=== PATIENT | female | born 1980 | race Caucasian/White ===

== ENCOUNTER 2018-07-07 12:30 | Inpatient (IN) ==
[2018-07-07] MEDS ORDERED: Bisacodyl 10 MG Supp RECTAL PRN (15:05)
[2018-07-07] MEDS ORDERED: Acetaminophen 325 MG Tablet PO PRN (15:05)
[2018-07-07] MEDS ORDERED: Sodium Chlor 0.9% Inj 250 ML IV.SIG SCH (16:00)
--- NOTE | 2018-07-07 16:49 | P.HP ---
History of Present Illness Primary Care Physician: No Primary Care Physician Chief Complaint: Abdominal pain History of Present Illness: This is a 37-year-old female patient who presented to the ED with complaints of sudden onset of left flank pain x 3 days duration. Patient states that about 3 days ago she was sitting watching TV when she developed left-sided abdominal pain/flank pain, she states that the pain is aching and sharp in nature, is constant and worsens with deep breathing, sneezing, laughing or moving. She does state that she attempted to take ibuprofen a couple times without any relief of the pain. She does admit to recent shortness of breath as well as fatigue pretty consistently over the course of the last several weeks. She does also admit to nausea and vomiting almost daily although this is a chronic issue for her. She states that she does not follow with the PCP, she states she does not necessarily like going to the doctor. She does not have a title i teacher she follows with. She denies any recent fevers, chills, cough, diarrhea, dysuria, black or bloody stools. Patient states her last menstrual period was 2 weeks ago, states it was rather heavier than normal. Prior to this her menstrual cycles have been pretty light. She denies any medical history, does not take any medicines at home. Does not have a surgical history. Her mom and dad are relatively healthy although they both have hepatitis C. She denies any tobacco abuse or alcohol use. She does admit to occasional marijuana use. Abdominal/pelvis CT showing some splenomegaly. An additional CT with IV contrast has been ordered. Patient presented with a hemoglobin of 6.0. At this time there is no apparent bleeding. Workup in progress. - Diagnosis (1) Anemia (2) Splenomegaly Inpatient Certification: I certify that the inpatient services were ordered in accordance with Medicare regulations governing the order. This includes certification that hospital inpatient services are reasonable and necessary and in the case of services not specified as inpatient-only under 42 CFR 419.22(n), that they are appropriately provided as inpatient services in accordance to with the 2-midnight benchmark under 43 CFR 412.3(e) Estimated Total Length of Stay (Days): 3 Plans for Post Hospital Care: Home Review of Systems All other systems reviewed negative except as stated in HPI [facility] - History History Provided By: Patient - Medical History Medical History: Medical History (Last Reviewed 07/07/18 @ 12:21 by MILDRED Serra) Depression - Surgical History Surgical History: Surgical History (Last Reviewed 07/07/18 @ 12:21 by MILDRED Serra) No history of previous surgery - Tobacco History Smoking Status: Never smoker - Alcohol History How Often Do You Have a Drink Containing Alcohol: Never - Substance Use History Substance History: Active Abuse Medications and Allergies Active Medications: Active Medications Acetaminophen (Tylenol) 650 mg PO Q4H PRN PRN Reason: Temp > 100.4 Al Hydroxide/Mg Hydroxide (Milk Of Magnesia Liq) 30 ml PO Q12H PRN PRN Reason: Mild Constipation Bisacodyl (Dulcolax Supp) 10 mg RECTAL DAILY PRN PRN Reason: SEVERE CONSITIPATION Sodium Chloride (Ns Inj) 250 mls @ 15 mls/hr IV.SIG ONCE ANCA Stop: 07/08/18 08:39 Lactulose (Lactulose Liq) 30 ml PO DAILY PRN PRN Reason: SEVERE CONSITIPATION Ondansetron HCl (Zofran Inj) 4 mg IV.PUSH Q6H PRN PRN Reason: NAUSEA OR VOMITING Sennosides (Senokot) 17.2 mg PO Q12H PRN PRN Reason: Moderate Constipation Allergies Allergy/AdvReac Type Severity Reaction Status Date / Time No Known Allergies Allergy Unverified 07/07/18 11:58 Home Medications Medication Instructions Recorded Confirmed Type No Known Home Medications 07/07/18 07/08/18 History Exam Narrative: GENERAL: Well-developed, well-nourished patient in [facility]. SKIN: Warm and dry. No rash. Pale. HEAD: Normocephalic. Atraumatic. EYES: Pupils equal and round. No scleral icterus. No injection or drainage. ENT: No nasal bleeding or discharge. Mucous membranes pink and moist. NECK: Supple. Trachea midline. CARDIOVASCULAR: Regular rate and rhythm. S1, S2 noted. No murmur appreciated. RESPIRATORY: No accessory muscle use. Clear to auscultation. Breath sounds equal bilaterally. GASTROINTESTINAL: Abdomen soft, nondistended. Normoactive bowel sounds x4. Mild tenderness to left side. MUSCULOSKELETAL: No obvious deformities. Extremities without clubbing, cyanosis , or edema. NEUROLOGICAL: Awake and alert. No obvious cranial nerve deficits. Motor grossly within normal limits. 5/5 muscle strength in bilateral upper and lower extremities. Normal speech. PSYCHIATRIC: Appropriate mood and affect; insight and judgment normal. Results - Labs CBC & Chem 7: 07/08/18 06:15 07/08/18 06:15 Caprini VTE Risk Assessment Caprini VTE Risk Assessment: No/Low Risk (score <= 1) Caprini Risk Assessment Model: Point Value = 1 Point Value = 2 Point Value = 3 Point Value = 5 Age 41-60 Minor surgery BMI > 25 kg/m2 Swollen legs Varicose veins or History of unexplained or recurrent spontaneous Oral contraceptives or hormone replacement Sepsis (< 1 month) Serious lung disease, including pneumonia (< 1 month) Abnormal pulmonary function Acute myocardial infarction Congestive heart failure (< 1 month) History of inflammatory bowel disease Medical patient at bed rest Age 61-74 Arthroscopic surgery Major open surgery (> 45 min) Laparoscopic surgery (> 45 min) Malignancy Confined to bed (> 72 hours) Immobilizing plaster cast Central venous access Age >= 75 History of VTE Family history of VTE Factor V Leiden Prothrombin [id number] Lupus anticoagulant Anticardiolipin antibodies Elevated serum homocysteine Heparin-induced thrombocytopenia Other congenital or acquired thrombophilia Stroke (< 1 month) Elective arthroplasty Hip, pelvis, or leg fracture Acute spinal cord injury (< 1 month) Prophylaxis Regimen: Total Risk Factor Score Risk Level Prophylaxis Regimen 0-1 Low Early ambulation 2 Moderate Order ONE of the following: *Sequential Compression Device (SCD) *Heparin 5000 units SQ BID 3-4 Higher Order ONE of the following medications: *Heparin 5000 units SQ TID *Enoxaparin/Lovenox 40 mg SQ daily (WT < 150 kg, CrCl > 30 mL/min) *Enoxaparin/Lovenox 30 mg SQ daily (WT < 150 kg, CrCl > 10-29 mL/min) *Enoxaparin/Lovenox 30 mg SQ BID (WT < 150 kg, CrCl > 30 mL/min) AND/OR *Sequential Compression Device (SCD) 5 or more Highest Order ONE of the following medications: *Heparin 5000 units SQ TID (Preferred with Epidurals) *Enoxaparin/Lovenox 40 mg SQ daily (WT < 150 kg, CrCl > 30 mL/min) *Enoxaparin/Lovenox 30 mg SQ daily (WT < 150 kg, CrCl > 10-29 mL/min) *Enoxaparin/Lovenox 30 mg SQ BID (WT < 150 kg, CrCl > 30 mL/min) AND *Sequential Compression Device (SCD) Assessment and Plan - Assessment (1) Anemia Code(s): D64.9 - Anemia, unspecified Status: Acute (2) Splenomegaly Code(s): R16.1 - Splenomegaly, not elsewhere classified Status: Acute - Plan This is a 37-year-old female patient with: Microcytic hypochromic anemia from unknown etiology/source -Patient presented with left upper quadrant -Hemoglobin 6.0/Hematocrit 22.9 on presentation. Guaiac negative. -Likely a slow chronic bleed. Will order for 2 units PRBC transfusion. Check H& H q6h. Monitor for any active bleeding. No active bleeding at this time. LMP was 2 weeks ago. -Abdominal/pelvis CT reviewed showing splenomegaly with either dilated varices or adenopathy in the retroperitoneum and left renal hilum. Order for ab/pelvis CT with contrast ordered. Follow. -Add LDH, iron studies and haptoglobin as well as b12 and folate to lab work. LFTs are normal. Follow ordered lab work. -Supportive care. Splenomegaly unknown etiology -Abdominal/pelvis CT findings as above. -Await repeat abdominal/pelvis CT with IV contrast. -Monitor labs. -Continue work up. DVT Prophylaxis: SCDs.
[2018-07-07] MEDS ORDERED: Morphine Inj 4 MG/ML Vial IV.PUSH PRN (18:30)
[2018-07-07 20:45] LABS: Hematocrit 20.5 % (35.0-46.0); Hemoglobin 6.2 gm/dL (11.6-15.3)
[2018-07-07] MEDS: Dextrose 5%/NaCl 0.45% Inj 1,000 ML IV.CONT SCH (23:39)
[2018-07-08 04:54] LABS: % Iron Saturation 9.5 % (20-50); Folate 8.1 ng/mL (3.1-17.5)
[2018-07-08] MEDS: Dextrose 5%/NaCl 0.45% Inj 1,000 ML IV.CONT SCH (07:03)
[2018-07-08 07:40] LABS: Chloride 104 meq/L (98-107); Potassium 3.6 meq/L (3.5-5.1); Sodium 139 meq/L (136-145)
[2018-07-08 07:42] LABS: Baso % (Auto) 0.2 % (0.0-2.0); Eos # (Auto) 0.1 th/mm3 (0.0-0.4); Eos % (Auto) 1.3 % (0.0-4.0); Hematocrit 25.3 % (35.0-46.0); Hemoglobin 7.6 gm/dL (11.6-15.3); Lymph # (Auto) 1.1 th/mm3 (1.0-4.8); Lymph % (Auto) 10.3 % (9.0-44.0); Mean Corpuscular Hemoglobin 20.4 pg (27.0-34.0); Mean Corpuscular Volume 67.9 fL (80.0-100.0); Mean Platelet Volume 7.8 fL (7.0-11.0); Mono # (Auto) 0.9 th/mm3 (0.0-0.9); Mono % (Auto) 8.4 % (0.0-8.0); Neut # (Auto) 8.3 th/mm3 (1.8-7.7); Neut % (Auto) 79.8 % (16.0-70.0); Platelet Count 366 th/mm3 (150-450); Red Blood Count 3.72 mil/mm3 (4.00-5.30); Red Cell Distribution Width 27.1 % (11.6-17.2); White Blood Count 10.4 th/mm3 (4.0-11.0)
[2018-07-08 07:45] LABS: Calcium 8.1 mg/dL (8.5-10.1)
[2018-07-08 07:46] LABS: Anion Gap 10 meq/L (5-15); Blood Urea Nitrogen 4 mg/dL (7-18); Carbon Dioxide 25.3 meq/L (21.0-32.0); Glucose,Random 94 mg/dL (74-106)
[2018-07-08 07:49] LABS: Glomerular Filtration Rate Greater Than 89 mL/min (>89)
[2018-07-08 08:13] LABS: Eosinophils 1 % (0-4); Lymphocytes 7 % (9-44); Monocytes 3 % (0-8); Tallied Nucleated RBC 1 (0-0)
[2018-07-08 08:17] LABS: Acanthocytes Occ
[2018-07-08 08:18] LABS: Ovalocytes 1+; Platelet Estimate Normal (Normal); Platelet Morphology Normal (Normal); Rouleaux Present; Tear Drop Cells 1+
--- NOTE | 2018-07-08 09:57 | P.PN ---
Subjective Interval history: Follow up anemia and splenomegaly. Patient seen and examined, lying in bed comfortably in [facility]. No reports of any acute events overnight. Recd 2 units PRBC overnight. H&H 7.6 today. Still dyspneic on exertion. Awaiting on oncology consultation today for splenomegaly. Denies any chest pain, abdominal pain, nausea, vomiting or diarrhea. Physical Exam Vital signs: Vital Signs 07/07/18 19:00 07/07/18 20:00 07/08/18 00:00 Temperature 98.4 F 98.5 F Pulse Rate 105 H 102 H 102 H Respiratory Rate 16 16 Blood Pressure 131/68 133/83 Pulse Oximetry 100 100 07/08/18 00:45 07/08/18 01:05 07/08/18 01:35 Temperature 98.5 F 99.0 F 98.5 F Pulse Rate 102 H 103 H 102 H Respiratory Rate 16 20 Blood Pressure 133/83 133/62 136/66 Pulse Oximetry 100 07/08/18 03:48 07/08/18 04:05 07/08/18 04:20 Temperature 98.7 F 98.3 F 98.5 F Pulse Rate 99 H 98 H 103 H Respiratory Rate 16 16 Blood Pressure 128/60 133/63 Pulse Oximetry 99 98 98 07/08/18 08:00 Temperature 98.2 F Pulse Rate 93 H Respiratory Rate 20 Blood Pressure 145/82 H Pulse Oximetry 100 Intake & Output 07/07/18 07/08/18 07/08/18 18:59 06:59 18:59 Intake Total 400 / 400 1000 / 1000 Balance 400 / 400 1000 / 1000 Weight 100.6 kg Intake: IV 1000 / 1000 D5W/1/2 NS Inj 1,000 ML @ 100 1000 / 1000 mls/hr IV.CONT .Q10H [facility] Rx#: [id number] Intake (Blood Product) Amt 400 / 400 Rbc As-3 Leukoreduced Unit 400 / 400 [id number] Rbc As-3 Leukoreduced Unit 0 / 0 [id number] Other: # Voids 4 # Bowel Movements 1 Narrative: GENERAL: Well-developed, well-nourished patient in [facility]. SKIN: Warm and dry. No rash. HEAD: Normocephalic. Atraumatic. EYES: Pupils equal and round. No scleral icterus. No injection or drainage. ENT: No nasal bleeding or discharge. Mucous membranes pink and moist. NECK: Supple. Trachea midline. CARDIOVASCULAR: Regular rate and rhythm. S1, S2 noted. No murmur appreciated. RESPIRATORY: No accessory muscle use. Clear to auscultation. Breath sounds equal bilaterally. GASTROINTESTINAL: Abdomen soft, non-tender, nondistended. Normoactive bowel sounds x4. MUSCULOSKELETAL: No obvious deformities. Extremities without clubbing, cyanosis , or edema. NEUROLOGICAL: Awake and alert. No obvious cranial nerve deficits. Motor grossly within normal limits. 5/5 muscle strength in bilateral upper and lower extremities. Normal speech. PSYCHIATRIC: Appropriate mood and affect; insight and judgment normal. Results - Labs CBC & Chem 7: 07/08/18 06:15 07/08/18 06:15 Laboratory Results - last 24 hr 07/07/18 07/07/18 07/07/18 20:26 20:26 21:30 CBC w Diff WBC RBC Hgb 6.2 L* Hct 20.5 L* MCV MCH MCHC RDW Plt Count MPV Neut % (Auto) Lymph % (Auto) [place] % (Auto) Eos % (Auto) Baso % (Auto) Neut # (Auto) Lymph # (Auto) [place] # (Auto) Eos # (Auto) Baso # (Auto) WBC Differential Seg Neuts % (Manual) Band Neuts % (Manual) Lymphocytes % (Manual) Monocytes % (Manual) Eosinophils % (Manual) Abs Neuts (Manual) Nucleated RBCs/100 WBC Differential Comment Platelet Estimate Platelet Morphology Basophilic Stippling Tear Drop Cells Ovalocytes Acanthocytes (Spur) Rouleaux Keratocytes Haptoglobin 316 H Sodium Potassium Chloride Carbon Dioxide Anion Gap BUN Creatinine Estimated GFR Random Glucose Calcium Iron 20 L TIBC 210 L % Saturation 9.5 L Lactate Dehydrogenase 299 H Vitamin B12 631 Folate 8.1 Blood Type O Positive Blood Type Recheck Required Antibody Screen Negative MTS Gel Crossmatch See Detail 07/08/18 07/08/18 06:15 06:15 CBC w Diff Slide review pending WBC 10.4 RBC 3.72 L Hgb 7.6 L Hct 25.3 L MCV 67.9 L MCH 20.4 L MCHC 30.0 L RDW 27.1 H D Plt Count 366 MPV 7.8 Neut % (Auto) 79.8 H Lymph % (Auto) 10.3 [place] % (Auto) 8.4 H Eos % (Auto) 1.3 Baso % (Auto) 0.2 Neut # (Auto) 8.3 H Lymph # (Auto) 1.1 [place] # (Auto) 0.9 Eos # (Auto) 0.1 Baso # (Auto) 0.0 WBC Differential Manual diff final Seg Neuts % (Manual) 79 H Band Neuts % (Manual) 10 H Lymphocytes % (Manual) 7 L Monocytes % (Manual) 3 Eosinophils % (Manual) 1 Abs Neuts (Manual) 9.3 H Nucleated RBCs/100 WBC 1 H Differential Comment . Platelet Estimate Normal Platelet Morphology Normal Basophilic Stippling Faint H Tear Drop Cells 1+ H Ovalocytes 1+ H Acanthocytes (Spur) Occ H Rouleaux Present H Keratocytes Occ H Haptoglobin Sodium 139 Potassium 3.6 Chloride 104 Carbon Dioxide 25.3 Anion Gap 10 BUN 4 L Creatinine 0.41 L Estimated GFR Greater than 89 Random Glucose 94 Calcium 8.1 L Iron TIBC % Saturation Lactate Dehydrogenase Vitamin B12 Folate Blood Type Blood Type Recheck Antibody Screen MTS Gel Crossmatch Assessment and Plan - Assessment (1) Anemia Code(s): D64.9 - Anemia, unspecified Status: Acute (2) Splenomegaly Code(s): R16.1 - Splenomegaly, not elsewhere classified Status: Acute - Plan This is a 37-year-old female patient with: Microcytic hypochromic anemia from unknown etiology/source -Patient presented Hemoglobin 6.0/Hematocrit 22.9. No active bleeding. Monitor. -Guaiac negative. LMP was 2 weeks ago. -Status post 2 units PRBC transfusion. H&H improved from 6.0 to 7.6 today. Continue to monitor H&H. -Abdominal/pelvis CT reviewed showing splenomegaly with either dilated varices or adenopathy in the retroperitoneum and left renal hilum. -Repeat abdominal/pelvis CT showing splenomegaly with splenic infarct and adenopathy. -LDH and haptoglobin elevated. Iron studies reviewed. B12 and folate normal. LFTs are normal. -Supportive care. Splenomegaly unknown etiology Left upper quadrant pain suspect secondary to above. Improved. -Abdominal/pelvis CT findings as above. -Consult placed to oncology, awaiting further input and recommendations. -ECHO ordered and pending. Follow. -Monitor ordered labs. -Continue work up, tumor markers ordered and pending. DVT Prophylaxis: SCDs. Patient would benefit from anticoagulation although with anemia will hold anticoagulation until stable and oncology recommendations.
[2018-07-08] MEDS ORDERED: Sodium Chlor 0.9% Inj 250 ML IV.SIG SCH (11:00)
[2018-07-08 12:55] LABS: Alpha Fetoprotein Tumor Marker 1.3 ng/mL (0.5-8.0); Carcinoembryonic Antigen 0.9 ng/mL (0.2-5.0)
--- NOTE | 2018-07-08 14:48 | ECHRPT ---
Indication: Chest pain CONCLUSIONS The left ventricular systolic function is low normal with an estimated ejection fraction in the rang e of 50- 55%. Wall thickness is measured at the upper limits of normal. Normal left ventricular size. Trace mitral valve regurgitation. Extra-cardiac soft tissue abnormality seen at the apex seems most likely to be splenomegaly which wa s reported in the EMR but a dedicated study would be recommended. BP: / HR: Rhythm: Sinus MEASUREMENTS (Male / Female) Normal Values Technical Quality:Technically difficult study 2D ECHO LV Diastolic Diameter PLAX 4.0 cm 4.2 - 5.9 / 3.9 - 5.3 cm LV Systolic Diameter PLAX 2.9 cm IVS Diastolic Thickness 0.8 cm 0.6 - 1.0 / 0.6 - 0.9 cm LVPW Diastolic Thickness 0.8 cm 0.6 - 1.0 / 0.6 - 0.9 cm LV Relative Wall Thickness 0.4 RV Internal Dim ED PLAX 2.3 cm LVOT Diameter 1.9 cm LA Systolic Diameter LX 3.9 cm 3.0 - 4.0 / 2.7 - 3.8 cm M-MODE Aortic Root Diameter MM 2.5 cm LA Systolic Diameter MM 4.2 cm LA Ao Ratio MM 1.7 AV Cusp Separation MM 2.0 cm DOPPLER AV Peak Velocity 159.0 cm/s AV Peak Gradient 10.1 mmHg LVOT Peak Velocity 102.0 cm/s LVOT Peak Gradient 4.2 mmHg AV Area Cont Eq pk 1.8 cm MV Area PHT 2.6 cm Mitral E Point Velocity 117.0 cm/s Mitral A Point Velocity 86.9 cm/s Mitral E to A Ratio 1.3 LV E' Lateral Velocity 15.3 cm/s Mitral E to LV E' Lateral Ratio 7.6 LV E' Septal Velocity 9.7 cm/s Mitral E to LV E' Septal Ratio 12.1 FINDINGS LEFT VENTRICLE The left ventricular systolic function is low normal with an estimated ejection fraction in the rang e of 50- 55%. Wall thickness is measured at the upper limits of normal. Normal left ventricular size. RIGHT VENTRICLE Normal right ventricular size and systolic function. LEFT ATRIUM The left atrial size is normal. RIGHT ATRIUM The right atrial size is normal. ATRIAL SEPTUM Normal atrial septal thickness without atrial level shunting by limited color doppler interrogation. AORTA The aortic root and proximal ascending aorta are normal in size on limited imaging. MITRAL VALVE Trace mitral valve regurgitation. AORTIC VALVE Trileaflet aortic valve. No aortic valve stenosis or regurgitation. TRICUSPID VALVE Structurally normal tricuspid valve. No tricuspid valve stenosis or regurgitation. PULMONARY VALVE No pulmonary valve regurgitation or stenosis. VESSELS The inferior vena cava is normal in size. PERICARDIUM No pericardial effusion. Ulysses Ivan MD (Electronically Signed) Final Date:08 July 2018 14:47
--- NOTE | 2018-07-08 17:24 | CT ---
EXAM DATE: 07/08/2018 5:02 PM EDT AGE/SEX: 37 years / Female INDICATIONS: Right upper chest and shoulder pain. Splenomegaly discovered on CT yesterday. Evaluate for neoplasm. CLINICAL DATA: This is the patient's initial encounter. Patient reports that signs and symptoms have been present for 1 day and indicates a pain score of 4/10. MEDICAL/SURGICAL HISTORY: Anemia. Splenomegaly. None. RADIATION DOSE: 26.92 CTDI (mGy) ; Patient body habitus COMPARISON: [facility], CT ABDOMEN & PELVIS W CONTRAST, 07/07/2018. . TECHNIQUE: Multiple contiguous axial images were obtained through the chest during bolus infusion of 70 ml Omnipaque 350 (iohexol) nonionic water-soluble contrast as a single exam dose. Images were obtained in suspended respiration using multiple row detector helical technique. Using automated exp osure control and adjustment of the mA and/or kV according to patient size, radiation dose was kept a s low as reasonably achievable to obtain optimal diagnostic quality images. DICOM format image data is available electronically for review and comparison. FINDINGS: Lungs: No consolidation or pneumothorax. No concerning pulmonary nodule is identified. There is mi ld compressive atelectasis in the left lower lobe adjacent to the small left pleural effusion and [place] vated left hemidiaphragm. Mediastinum: The heart and great vessels demonstrate no acute abnormality. There are multiple mildl y enlarged lymph nodes in the mediastinum including superior mediastinal lymphadenopathy between the great vessels measuring up to 1.4 x 1.1 cm, right paratracheal lymph node measuring 11 mm in short ax is diameter, an AP window lymph node measuring 10 mm in short axis diameter. Borderline enlarged subc arinal lymph node measures 14 mm in short axis diameter. No hilar lymphadenopathy is appreciated. Pleurae: There is trace left pleural fluid. No pleural thickening is seen. Axillae: No lymphadenopathy. Musculoskeletal: The bones and soft tissues demonstrate no acute abnormality. There are mild degene rative changes of the thoracic spine. Other: There is significant splenomegaly with wedge-shaped area of hypodensity similar to the abdome n and pelvis CT performed yesterday. There is a mildly enlarged right supraclavicular lymph node rajinder uring 1.5 x 1.0 cm. CONCLUSION: 1. There is mediastinal and right supraclavicular lymphadenopathy, as above. 2. Trace left pleural fluid with compressive atelectasis in the left lower lobe. 3. Partially visualized significant splenomegaly with suspected infarct. Electronically signed by: Luciano Arita MD 07/08/2018 5:22 PM EDT
--- NOTE | 2018-07-08 18:21 | MB ---
cc: Baldo Small MD DATE: 07/08/2018 CONSULTING PROVIDER: MILDRED Turner REASON FOR CONSULTATION: Hematology consulted render an opinion in a patient with splenomegaly and lymphadenopathy. HISTORY OF PRESENT ILLNESS: The patient is a 37-year-old female who presented to the hospital complaining of acute left flank pain. She stated she developed crampy muscle ache in the left flank area Tuesday night when she was watching TV. She took some ibuprofen with no relief. She has had nausea and intermittent vomiting for about a year. She also experienced increased fatigue and decreased appetite for at least a 6-month period. She states she lost about 40-50 pounds. She, however, did not seek any medical attention. Lately, she has increased dyspnea on exertion. She denies any fever, chills. She denies any night sweats. She denies any chest pressure or palpitation. She denies any cough. She denies any melena, hematochezia, dysuria or hematuria. Her last menstrual period was 2 weeks ago. She is not sexually active. She denies any focal numbness, weakness, urinary weakness. She has occasional headache. On presentation, she was noted to have hemoglobin of 6. She also has a CT scan which showed splenomegaly and retroperitoneal adenopathy. PAST MEDICAL HISTORY: Depression, obesity. PAST SURGICAL HISTORY: None. FAMILY HISTORY: Grandfather had pancreatic cancer. Her parents are alive and well. She has a brother was healthy. She has no children. SOCIAL HISTORY: No tobacco or alcohol use. She smoked marijuana occasionally. 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 ALLERGIES: NO KNOWN DRUG ALLERGIES. OUTPATIENT MEDICATIONS: None. REVIEW OF SYSTEMS: CONSTITUTIONAL: As above. EYES: Negative. ENT: Negative. CARDIOVASCULAR: No chest pressure or palpitation. RESPIRATORY: As above. GASTROINTESTINAL: As above. GENITOURINARY: As above. MUSCULOSKELETAL: Negative. HEMATOLOGY: As above. ENDOCRINE: Negative. DERMATOLOGY: Negative. PSYCHIATRIC: Negative. IMMUNOLOGIC: Negative. PHYSICAL EXAMINATION: VITAL SIGNS: Temperature 97.8, blood pressure 113/59, O2 saturation 99%. GENERAL: She is alert, oriented x3, no acute distress. HEENT: Atraumatic, normocephalic. Pupils are equal, round, reactive to light. Extraocular muscles intact. Normal sclerae icterus. Oropharynx dry mucosa. No lesion. No thrush. No mucositis. NECK: No thyromegaly. No palpable mass. LYMPHATIC: No palpable cervical, clavicular, axillary lymph node. CARDIOVASCULAR: Regular S1, S2. No murmur. LUNGS: Clear to auscultation bilateral wheezing and rhonchi. ABDOMEN: Soft. Slightly tender in the left upper quadrant. Difficult to palpate the spleen due to the obesity. EXTREMITIES: No cyanosis, clubbing or edema. No calf tenderness. BACK: No paravertebral tenderness. SKIN: No rash or petechiae. NEUROLOGIC: Nonfocal. LABORATORY DATA: WBC 10.4, hemoglobin 7.6, MCV 67.9, platelet count 366. Haptoglobin 316, creatinine 0.4, LDH of 299, iron saturation 9. ASSESSMENT AND PLAN: 1. Splenomegaly and lymphadenopathy. She presented with acute left flank pain. CT with contrast showed significant splenomegaly with spleen size of 19 cm. There was also splenic infarction noted. She has significant adenopathy in the upper abdomen and retroperitoneum. Clinically, she has not been feeling well for more than 6 months. She has lost about 40-50 pounds. She has increased fatigue and decreased appetite. She also has had intermittent nausea and vomiting. Her LDH is elevated. This is concerning for a lymphoproliferative disorder. I reviewed the CT scan with the patient. I would suggest getting a CT of the chest to see if there is any other adenopathy in the thorax. She is going to need a biopsy of the retroperitoneal lymph node. I will consult radiology for CT-guided biopsy. Also, check an HIV screen. The patient agrees. She, however, denies being sexually active or using any intravenous drug. She may also need a bone marrow biopsy, but we can wait until we have a diagnosis from the lymph node biopsy. 2. Severe anemia. She presented with hemoglobin of 6. She denies gastrointestinal bleed. She states that this moth her menstrual periods was heavier than her usual. She has significant microcytosis. Iron saturation of 9%. This is consistent with iron deficiency. She is receiving red blood cell transfusion. We will give her infusion of Venofer. 3. Depression. RECOMMENDATIONS: 1. Arrange for CT of the chest. 2. Consult radiology for a CT-guided biopsy of retroperitoneal lymph node. 3. Check HIV screen. 4. We will give her infusion of Venofer. Thank you, Ms. Cote, for asking me to see this patient. MD ZEINA Negrete/ , 04:18 PM , 04:33 PM DERREK
--- NOTE | 2018-07-09 08:32 | P.PN ---
Subjective Interval history: Follow up anemia and splenomegaly. Patient seen and examined, lying in bed comfortably in no apparent distress. Denies any new acute complaints overnight. Afebrile. Vitals signs stable. Pain is well controlled. Awaiting biopsy tomorrow. Physical Exam Vital signs: Vital Signs 07/08/18 12:00 07/08/18 12:34 07/08/18 16:00 Temperature 97.8 F 99.2 F Pulse Rate 95 H 100 H Respiratory Rate 20 20 Blood Pressure 133/88 113/59 L 143/81 H Pulse Oximetry 99 97 07/08/18 20:00 07/09/18 00:00 Temperature 98.3 F 97.5 F L Pulse Rate 96 H 97 H Respiratory Rate 20 20 Blood Pressure 134/72 133/72 Pulse Oximetry 97 98 Intake & Output 07/08/18 07/09/18 07/09/18 18:59 06:59 18:59 Intake Total 3620 / 3620 480 / 480 Balance 3620 / 3620 480 / 480 Weight 100.6 kg 100.8 kg Intake: IV 2500 / 2500 D5W/1/2 NS Inj 1,000 ML @ 100 2000 / 2000 mls/hr IV.CONT .Q10H ANCA Rx#: [id number] NS Inj 250 ML @ 15 mls/hr IV. 500 / 500 SIG ONCE ANCA Rx#:[id number] Oral 720 / 720 480 / 480 Intake (Blood Product) Amt 400 / 400 Rbc As-3 Leukoreduced Unit 400 / 400 [id number] Other: # Voids 3 Date of Last Bowel Movement 07/09/18 # Bowel Movements 2 Weight On Admission 100.6 kg Narrative: GENERAL: Well-developed, well-nourished patient in [facility]. SKIN: Warm and dry. No rash. HEAD: Normocephalic. Atraumatic. EYES: Pupils equal and round. No scleral icterus. No injection or drainage. ENT: No nasal bleeding or discharge. Mucous membranes pink and moist. NECK: Supple. Trachea midline. CARDIOVASCULAR: Regular rate and rhythm. S1, S2 noted. No murmur appreciated. RESPIRATORY: No accessory muscle use. Clear to auscultation. Breath sounds equal bilaterally. GASTROINTESTINAL: Abdomen soft, non-tender, nondistended. Normoactive bowel sounds x4. MUSCULOSKELETAL: No obvious deformities. Extremities without clubbing, cyanosis , or edema. NEUROLOGICAL: Awake and alert. No obvious cranial nerve deficits. Motor grossly within normal limits. 5/5 muscle strength in bilateral upper and lower extremities. Normal speech. PSYCHIATRIC: Appropriate mood and affect; insight and judgment normal. Results - Labs CBC & Chem 7: 07/08/18 06:15 07/08/18 06:15 Laboratory Results - last 24 hr 07/07/18 07/08/18 07/08/18 20:26 09:15 09:15 Total Protein (PEP) Tumor Marker AFP 1.3 Carcinoembryonic Ag 0.9 CA 19-9 Antigen Less than 1.2 Beta HCG, Qual HIV 1&2 Ab/P24 Ag 4thGn MTS Gel Crossmatch See Detail Bld Prod Order Comment 07/08/18 07/08/18 07/08/18 10:13 17:06 17:06 Total Protein (PEP) 7.4 Tumor Marker AFP Carcinoembryonic Ag CA 19-9 Antigen Beta HCG, Qual Less than 1.00 HIV 1&2 Ab/P24 Ag 4thGn Nonreactive MTS Gel Crossmatch See Detail Bld Prod Order Comment - Imaging Impressions Chest CT 07/08/18 00:00 CONCLUSION: 1. There is mediastinal and right supraclavicular lymphadenopathy, as above. 2. Trace left pleural fluid with compressive atelectasis in the left lower lobe. 3. Partially visualized significant splenomegaly with suspected infarct. Assessment and Plan - Assessment (1) Anemia Code(s): D64.9 - Anemia, unspecified Status: Acute (2) Splenomegaly Code(s): R16.1 - Splenomegaly, not elsewhere classified Status: Acute - Plan This is a 37-year-old female patient with: Severe anemia, microcytic hypochromic high RDW Iron deficiency anemia -Patient presented Hemoglobin 6.0/Hematocrit 22.9. -Guaiac negative. LMP was 2 weeks ago. -Status post 2 units PRBC transfusion. H&H improved from 6.0 to 7.6. Continue to monitor H&H. Awaiting CBC today. No active bleeding. Monitor. -Abdominal/pelvis CT reviewed showing splenomegaly with either dilated varices or adenopathy in the retroperitoneum and left renal hilum. -Repeat abdominal/pelvis CT showing splenomegaly with splenic infarct and adenopathy. -LDH and haptoglobin elevated. Iron studies reviewed, give Venofer. B12 and folate normal. LFTs are normal. -Supportive care. Splenomegaly and lymphadenopathy. Left upper quadrant pain suspect secondary to above. Improved. -Abdominal/pelvis CT findings as above. -Consult placed to oncology, appreciate input and recommendations. -CT chest ordered and showing mediastinal and right supraclavicular lymphadenopathy, trace pleural fluid with compressive compressive atelectasis in left lower lobe, as well as splenomegaly and infarct. -Incentive spirometry ordered. -Recommendations IR CT-guided biopsy of retroperitoneal lymph tomorrow. -HIV testing negative. -ECHO ordered and pending. -Monitor ordered labs. -Continue work up, tumor markers including CA-19-9 ordered and negative. Left lower lobe atelectasis -Seen on CT findings as above. -IS ordered. Encouraged ambulation and sitting in chair most of the day. -No signs of infection at this time. Afebrile. No leukocytosis. Will continue to monitor. DVT Prophylaxis: SCDs. Patient would benefit from anticoagulation although with anemia will hold anticoagulation until stable and oncology recommendations. Discharge Planning: Await biopsy on Tuesday.
[2018-07-09] MEDS ORDERED: Iron Sucrose Inj 200 MG in Sodium Chlor 0.9% Inj 100 ML IV.SIG ONE (10:00)
[2018-07-09 10:19] LABS: Baso # (Auto) 0.9 th/mm3 (0.0-0.2); Baso % (Auto) 5.5 % (0.0-2.0); Eos # (Auto) 0.2 th/mm3 (0.0-0.4); Eos % (Auto) 1.3 % (0.0-4.0); Hematocrit 27.8 % (35.0-46.0); Hemoglobin 8.8 gm/dL (11.6-15.3); Lymph # (Auto) 1.6 th/mm3 (1.0-4.8); Lymph % (Auto) 9.7 % (9.0-44.0); Mean Corpuscular HGB Conc 31.8 % (32.0-36.0); Mean Corpuscular Hemoglobin 21.8 pg (27.0-34.0); Mean Corpuscular Volume 68.6 fL (80.0-100.0); Mean Platelet Volume 9.2 fL (7.0-11.0); Mono # (Auto) 1.3 th/mm3 (0.0-0.9); Mono % (Auto) 7.4 % (0.0-8.0); Neut % (Auto) 76.1 % (16.0-70.0); Platelet Count 326 th/mm3 (150-450); Red Blood Count 4.05 mil/mm3 (4.00-5.30); Red Cell Distribution Width 28.1 % (11.6-17.2)
[2018-07-09 10:34] LABS: Eosinophils 3 % (0-4); Lymphocytes 5 % (9-44); Monocytes 5 % (0-8)
[2018-07-09 10:35] LABS: Ovalocytes 1+; Platelet Estimate Normal (Normal); Platelet Morphology Normal (Normal); Rouleaux Present
--- NOTE | 2018-07-10 07:54 | P.PN ---
Subjective Interval history: Follow-up anemia and splenomegaly. Patient seen and examined no acute events overnight. No changes overnight. Stable. Awaiting biopsy today. Mother at bedside and updated. All questions answered to the best of my ability. Afebrile overnight. Leukocytosis yesterday, awaiting lab work today. No signs of infection. Patient has been ambulating well. Encourage use of IS. Physical Exam Vital signs: Vital Signs 07/09/18 08:00 07/09/18 12:00 07/09/18 16:00 Temperature 98 F 97.8 F 97.7 F Pulse Rate 98 H 106 H 92 H Respiratory Rate 20 20 20 Blood Pressure 151/83 H 162/93 H 141/85 H Pulse Oximetry 98 95 96 07/09/18 20:00 07/10/18 00:00 Temperature 98.4 F 97.8 F Pulse Rate 107 H 96 H Respiratory Rate 16 16 Blood Pressure 124/75 121/66 Pulse Oximetry 98 96 Intake & Output 07/09/18 07/10/18 07/10/18 18:59 06:59 18:59 Intake Total 830 / 830 240 / 240 Balance 830 / 830 240 / 240 Intake: IV 110 / 110 Venofer Inj 200 MG In NS Inj 110 / 110 100 ML @ 110 mls/hr IV.SIG ONCE ONE Rx#:[id number] Oral 720 / 720 240 / 240 Other: # Voids 2 3 Narrative: GENERAL: Well-developed, well-nourished patient in [facility]. SKIN: Warm and dry. No rash. HEAD: Normocephalic. Atraumatic. EYES: Pupils equal and round. No scleral icterus. No injection or drainage. ENT: No nasal bleeding or discharge. Mucous membranes pink and moist. NECK: Supple. Trachea midline. CARDIOVASCULAR: Regular rate and rhythm. S1, S2 noted. No murmur appreciated. RESPIRATORY: No accessory muscle use. Clear to auscultation. Breath sounds equal bilaterally. GASTROINTESTINAL: Abdomen soft, non-tender, nondistended. Normoactive bowel sounds x4. MUSCULOSKELETAL: No obvious deformities. Extremities without clubbing, cyanosis , or edema. NEUROLOGICAL: Awake and alert. No obvious cranial nerve deficits. Motor grossly within normal limits. 5/5 muscle strength in bilateral upper and lower extremities. Normal speech. PSYCHIATRIC: Appropriate mood and affect; insight and judgment normal. Results - Labs CBC & Chem 7: 07/09/18 09:35 07/08/18 06:15 Laboratory Results - last 24 hr 07/09/18 09:35 CBC w Diff Slide review pending WBC 17.0 H RBC 4.05 Hgb 8.8 L Hct 27.8 L MCV 68.6 L MCH 21.8 L MCHC 31.8 L RDW 28.1 H Plt Count 326 MPV 9.2 Neut % (Auto) 76.1 H Lymph % (Auto) 9.7 [place] % (Auto) 7.4 Eos % (Auto) 1.3 Baso % (Auto) 5.5 H Neut # (Auto) 13.0 H Lymph # (Auto) 1.6 [place] # (Auto) 1.3 H Eos # (Auto) 0.2 Baso # (Auto) 0.9 H WBC Differential Manual diff final Seg Neuts % (Manual) 83 H Band Neuts % (Manual) 4 Lymphocytes % (Manual) 5 L Monocytes % (Manual) 5 Eosinophils % (Manual) 3 Abs Neuts (Manual) 14.8 H Differential Comment . Platelet Estimate Normal Platelet Morphology Normal Basophilic Stippling Faint H Ovalocytes 1+ H Rouleaux Present H Assessment and Plan - Assessment (1) Anemia Code(s): D64.9 - Anemia, unspecified Status: Acute (2) Splenomegaly Code(s): R16.1 - Splenomegaly, not elsewhere classified Status: Acute - Plan This is a 37-year-old female patient with: Severe anemia, microcytic hypochromic high RDW Iron deficiency anemia -Patient presented Hemoglobin 6.0/Hematocrit 22.9. -Guaiac negative. LMP was 2 weeks ago, not abnormal or significant bleeding. -Status post 3 units PRBC transfusion. H&H improved from 6.0 to 8.8. Continue to monitor H&H. No active bleeding. -Abdominal/pelvis CT reviewed showing splenomegaly with either dilated varices or adenopathy in the retroperitoneum and left renal hilum. -Repeat abdominal/pelvis CT showing splenomegaly with splenic infarct and adenopathy. -LDH and haptoglobin elevated. Iron studies reviewed, give Venofer. B12 and folate normal. LFTs are normal. -Supportive care. Splenomegaly and lymphadenopathy. Left upper quadrant pain suspect secondary to above. Improved. -Abdominal/pelvis CT findings as above. -Consult placed to oncology, appreciate input and recommendations. -CT chest ordered and showing mediastinal and right supraclavicular lymphadenopathy, trace pleural fluid with compressive compressive atelectasis in left lower lobe, as well as splenomegaly and infarct. -Recommendations IR CT-guided biopsy of retroperitoneal lymph tomorrow. -HIV testing negative. -ECHO results showing EF 50-55%. -Continue work up, tumor markers including CA-19-9 ordered and negative. Continue to monitor ordered labs. Left lower lobe atelectasis -Seen on CT findings as above. -IS ordered. Encouraged ambulation and sitting in chair most of the day. -No signs of infection at this time. Afebrile. Leukocytosis yesterday, will await CBC results today. DVT Prophylaxis: SCDs/ambulation. Discharge Planning: Await biopsy today. Further recommendations per oncology. Possible DC after bx today.
[2018-07-10 09:28] LABS: Baso # (Auto) 0.3 th/mm3 (0.0-0.2); Baso % (Auto) 3.5 % (0.0-2.0); Eos # (Auto) 0.1 th/mm3 (0.0-0.4); Eos % (Auto) 1.1 % (0.0-4.0); Hematocrit 27.4 % (35.0-46.0); Hemoglobin 8.8 gm/dL (11.6-15.3); Lymph % (Auto) 10.2 % (9.0-44.0); Mean Corpuscular HGB Conc 32.1 % (32.0-36.0); Mean Corpuscular Hemoglobin 22.3 pg (27.0-34.0); Mean Corpuscular Volume 69.3 fL (80.0-100.0); Mean Platelet Volume 7.8 fL (7.0-11.0); Mono # (Auto) 0.7 th/mm3 (0.0-0.9); Mono % (Auto) 7.5 % (0.0-8.0); Neut # (Auto) 7.7 th/mm3 (1.8-7.7); Neut % (Auto) 77.7 % (16.0-70.0); Platelet Count 286 th/mm3 (150-450); Red Blood Count 3.96 mil/mm3 (4.00-5.30); Red Cell Distribution Width 28.9 % (11.6-17.2); White Blood Count 9.8 th/mm3 (4.0-11.0)
[2018-07-10 10:01] LABS: INR 1.2 Ratio
[2018-07-10 10:05] LABS: Ovalocytes 1+
[2018-07-10 13:13] LABS: Immunoglobulin A 258 mg/dL (75-416); Immunoglobulin G 1670 mg/dL (690-1700); Immunoglobulin M 67 mg/dL (57-348); Kappa Lambda Ratio 1.84 (1.57-3.93); Lambda Light Chain 226 mg/dL (90-210)
--- NOTE | 2018-07-10 14:40 | P.DS ---
Date of admission: 07/07/18 18:42 Primary care physician: No Primary Care Physician Brief History from admission: This is a 37-year-old female patient who presented to the ED with complaints of sudden onset of left flank pain x 3 days duration. Patient states that about 3 days ago she was sitting watching TV when she developed left-sided abdominal pain/flank pain, she states that the pain is aching and sharp in nature, is constant and worsens with deep breathing, sneezing, laughing or moving. She does state that she attempted to take ibuprofen a couple times without any relief of the pain. She does admit to recent shortness of breath as well as fatigue pretty consistently over the course of the last several weeks. She does also admit to nausea and vomiting almost daily although this is a chronic issue for her. She states that she does not follow with the PCP, she states she does not necessarily like going to the doctor. She does not have a azure developer she follows with. She denies any recent fevers, chills, cough, diarrhea, dysuria, black or bloody stools. Patient states her last menstrual period was 2 weeks ago, states it was rather heavier than normal. Prior to this her menstrual cycles have been pretty light. She denies any medical history, does not take any medicines at home. Does not have a surgical history. Her mom and dad are relatively healthy although they both have hepatitis C. She denies any tobacco abuse or alcohol use. She does admit to occasional marijuana use. Abdominal/pelvis CT showing some splenomegaly. An additional CT with IV contrast has been ordered. Patient presented with a hemoglobin of 6.0. At this time there is no apparent bleeding. Workup in progress. DS: Diagnosis - Discharge Diagnosis (1) Anemia Status: Acute (2) Splenomegaly Status: Acute DS: Summary Hospital Course: This is a 37-year-old female patient who presented with severe anemia, microcytic hypochromic high RDW, Iron deficiency anemia. Patient presented Hemoglobin 6.0/Hematocrit 22.9. Guaiac negative. LMP was 2 weeks ago, not abnormal or significant bleeding. Status post 3 units PRBC transfusion. H&H improved from 6.0 to 8.8. Abdominal/pelvis CT reviewed showing splenomegaly with either dilated varices or adenopathy in the retroperitoneum and left renal hilum. Repeat abdominal/pelvis CT showing splenomegaly with splenic infarct and adenopathy. LDH and haptoglobin elevated. Iron studies low, given Venofer. B12 and folate normal. LFTs are normal. Splenomegaly and lymphadenopathy with associated left upper quadrant pain suspect secondary to above. Consult placed to oncology, who saw patient. Patient underwent a lymph node bx on 07/10/18. HIV testing negative. ECHO results showing EF 50-55%. Tumor markers including CA-19-9 negative. Also with left lower lobe atelectasis. Seen on CT findings as above. IS ordered. Encouraged ambulation and sitting in chair most of the day. No signs of infection at this time. Afebrile. No signs of infection. Patient advised to follow up with PCP and oncology for pathology report upon DC. - Time Spent with Patient Total time spent providing and/or coordinating discharge services: Greater than 30 minutes - Quality: VTE Deep Vein Thrombosis/Pulmonary Embolism Present on Admission: No Exam Vital signs: Vital Signs 07/09/18 16:00 07/09/18 20:00 07/10/18 00:00 Temperature 97.7 F 98.4 F 97.8 F Pulse Rate 92 H 107 H 96 H Respiratory Rate 20 16 16 Blood Pressure 141/85 H 124/75 121/66 Pulse Oximetry 96 98 96 07/10/18 08:00 07/10/18 12:00 Temperature 97.4 F L 98.3 F Pulse Rate 95 H 96 H Respiratory Rate 17 16 Blood Pressure 129/87 135/70 Pulse Oximetry 96 99 Intake & Output 07/09/18 07/10/18 07/10/18 18:59 06:59 18:59 Intake Total 830 / 830 240 / 240 Balance 830 / 830 240 / 240 Intake: IV 110 / 110 Venofer Inj 200 MG In NS Inj 110 / 110 100 ML @ 110 mls/hr IV.SIG ONCE ONE Rx#:[id number] Oral 720 / 720 240 / 240 Other: # Voids 2 3 Date of Last Bowel Movement 07/10/18 Narrative: GENERAL: Well-developed, well-nourished patient in [facility]. SKIN: Warm and dry. No rash. HEAD: Normocephalic. Atraumatic. EYES: Pupils equal and round. No scleral icterus. No injection or drainage. ENT: No nasal bleeding or discharge. Mucous membranes pink and moist. NECK: Supple. Trachea midline. CARDIOVASCULAR: Regular rate and rhythm. S1, S2 noted. No murmur appreciated. RESPIRATORY: No accessory muscle use. Clear to auscultation. Breath sounds equal bilaterally. GASTROINTESTINAL: Abdomen soft, non-tender, nondistended. Normoactive bowel sounds x4. MUSCULOSKELETAL: No obvious deformities. Extremities without clubbing, cyanosis , or edema. NEUROLOGICAL: Awake and alert. No obvious cranial nerve deficits. Motor grossly within normal limits. 5/5 muscle strength in bilateral upper and lower extremities. Normal speech. PSYCHIATRIC: Appropriate mood and affect; insight and judgment normal. Results Procedures completed during hospitalization: Lymph node biopsy 07/10/18. Labs on day of discharge: Labs from last 24 hours 07/10/18 07/10/18 07/08/18 09:20 09:10 17:06 CBC w Diff Slide review pending WBC 9.8 RBC 3.96 L Hgb 8.8 L Hct 27.4 L MCV 69.3 L MCH 22.3 L MCHC 32.1 RDW 28.9 H Plt Count 286 MPV 7.8 Neut % (Auto) 77.7 H Lymph % (Auto) 10.2 [place] % (Auto) 7.5 Eos % (Auto) 1.1 Baso % (Auto) 3.5 H Neut # (Auto) 7.7 Lymph # (Auto) 1.0 [place] # (Auto) 0.7 Eos # (Auto) 0.1 Baso # (Auto) 0.3 H WBC Differential . Diff Scan Auto diff confirmed Differential Comment . Ovalocytes 1+ H PT 12.0 H INR 1.2 IgG 1670 IgA 258 IgM 67 [place]/Lambda Ratio 1.84 [place] Light Chain Anal 416 H Lambda Light Chain Anal 226 H - Impressions ITS Impressions Chest CT 07/08/18 00:00 CONCLUSION: 1. There is mediastinal and right supraclavicular lymphadenopathy, as above. 2. Trace left pleural fluid with compressive atelectasis in the left lower lobe. 3. Partially visualized significant splenomegaly with suspected infarct. Discharge Plan - Discharge Disposition Patient Disposition: 01 Discharge Home - Discharge Condition Condition: Good - Physicians Team Primary Care Provider: Primary Care Physici,No Attending Provider: Myrtle Shafer Other Providers: Baldo Small MD - Rxs /Orders / Referrals /Forms Prescriptions: Continue No Known Home Medications Referrals: Baldo Small MD [Physician] - 07/18/18 Primary Care YanethNo [Primary Care Provider] - 07/18/18
--- NOTE | 2018-07-10 16:23 | P.RAD ---
Post Procedure Progress Note - Pre Procedure Diagnosis (1) Retroperitoneal lymphadenopathy - Post Procedure Diagnosis (1) Retroperitoneal lymphadenopathy - Procedure Information Procedure Date: 07/10/18 Supervising Radiologist: Romeo Yeung MD Estimated blood loss (mL): 0 Anesthesia: Local, Conscious Sedation - Plan of Activity Patient to Unit: ROPU Patient Condition: Good Additional Comments: Retroperitoneal biopsy completed. 16ga core sample taken and placed in PRP Pt. tolerated the procedure well. Sent to PACU in stable condition See PACS Report for procedural detail/treatment.
--- NOTE | 2018-07-10 16:31 | CT ---
EXAM DATE: 07/10/2018 4:23 PM EDT AGE/SEX: 37 years / Female INDICATIONS: Left retroperitoneal lymph node biopsy. CLINICAL DATA: This is the patient's initial encounter. Patient reports that signs and symptoms have been present for 1 day and indicates a pain score of 0/10. MEDICAL/SURGICAL HISTORY: . Anemia. Splenomegaly. None. COMPARISON: No prior exams available for comparison. SEDATION TIME (min): 20 BIOPSY SITE: Left lymph node retroperitoneal MEDICATION(S): 3 mg midazolam (Versed) IV 150mcg fentanyl (Sublimaze) IV DEVICE(S): 1 gauge Temno core biopsy needle One core specimen(s) sent to the laboratory for pathologic evaluation. PROCEDURE: CT guided Left lymph node retroperitoneal biopsy Conscious sedation with continuous EKG and oximetry monitoring. EKG and oximetry remained stable throughout the procedure. Prior to the procedure informed consent was obtained. Any appropriate prior imaging studies were rev iewed. Using automated exposure control and adjustment of the mA and/or kV according to patient size, radiat ion dose was kept as low as reasonably achievable to obtain optimal diagnostic quality images. DICOM format image data is available electronically for review and comparison. The site was prepped in a sterile fashion. Full sterile technique was used, including cap, mask, noheim rile gloves and gown and a large sterile sheet. Hand hygiene and 2% chlorhexidine and/or betadine/al cohol prep was utilized per protocol for cutaneous antisepsis. The skin and subcutaneous tissues wer e infiltrated with local anesthetic solution. With CT guidance the previously identified retroperitoneal lymph node localized. Biopsy was performed using a 16-gauge Temno biopsy needle as above. Adequate hemostasis was obtained with compression at the puncture site. Follow-up CT scan reveals no hemorrhage. The patient tolerated the procedure well and there were no complications. The patient was returned to the Radiology Outpatient Unit in stable condition. CONCLUSION: 1. Uncomplicated CT guided biopsy. Electronically signed by: Romeo Yeung MD 07/10/2018 4:30 PM EDT
[2018-07-10] MEDS ORDERED: fentaNYL Citrate Inj 100 MCG/2 ML Ampul IV.PUSH ONE ×2 (16:35)
[2018-07-10] MEDS ORDERED: Lidocaine 1%/Epinephrine 1:100,000 Inj 30 ML Vial I-DERMAL ONE (17:58)
--- NOTE | 2018-07-10 18:30 | P.PNONC ---
Subjective Interval history: Denies any pain postbiopsy. In retrospect was having early satiety, weight loss , referred pain to the left shoulder. Objective Vital Signs/Intake & Output: Vital Signs 07/09/18 20:00 07/10/18 00:00 07/10/18 08:00 Temperature 98.4 F 97.8 F 97.4 F L Pulse Rate 107 H 96 H 95 H Respiratory Rate 16 16 17 Blood Pressure 124/75 121/66 129/87 Pulse Oximetry 98 96 96 07/10/18 12:00 07/10/18 16:34 Temperature 98.3 F 97.1 F L Pulse Rate 96 H 107 H Respiratory Rate 16 16 Blood Pressure 135/70 134/76 Pulse Oximetry 99 100 Intake & Output 07/09/18 07/10/18 07/10/18 18:59 06:59 18:59 Intake Total 830 / 830 240 / 240 Balance 830 / 830 240 / 240 Intake: IV 110 / 110 Venofer Inj 200 MG In NS Inj 110 / 110 100 ML @ 110 mls/hr IV.SIG ONCE ONE Rx#:[id number] Oral 720 / 720 240 / 240 Other: # Voids 2 3 Date of Last Bowel Movement 07/10/18 Result Diagrams: 07/10/18 09:10 07/08/18 06:15 Laboratory Results: Laboratory Results - last 24 hr 07/08/18 07/10/18 07/10/18 17:06 09:10 09:20 CBC w Diff Slide review pending WBC 9.8 RBC 3.96 L Hgb 8.8 L Hct 27.4 L MCV 69.3 L MCH 22.3 L MCHC 32.1 RDW 28.9 H Plt Count 286 MPV 7.8 Neut % (Auto) 77.7 H Lymph % (Auto) 10.2 [place] % (Auto) 7.5 Eos % (Auto) 1.1 Baso % (Auto) 3.5 H Neut # (Auto) 7.7 Lymph # (Auto) 1.0 [place] # (Auto) 0.7 Eos # (Auto) 0.1 Baso # (Auto) 0.3 H WBC Differential . Diff Scan Auto diff confirmed Differential Comment . Ovalocytes 1+ H PT 12.0 H INR 1.2 IgG 1670 IgA 258 IgM 67 [place]/Lambda Ratio 1.84 [place] Light Chain Anal 416 H Lambda Light Chain Anal 226 H Imaging Studies: Impressions Lymph Node Biopsy CT 07/10/18 00:00 CONCLUSION: 1. Uncomplicated CT guided biopsy. Medications: Active Medications Generic Name Dose Route Start Last Admin Trade Name Frechristian PRN Reason Stop Dose Admin Clonidine HCl 0.1 mg 07/09/18 13:31 07/09/18 14:08 Catapres PO 0.1 mg Q6H PRN Administration SBP>160, DBP>90 Objective Remarks: GENERAL: Well-nourished, heavyset, well-developed patient. SKIN: Warm and dry. HEAD: Normocephalic. EYES: No scleral icterus. No injection or drainage. NECK: Supple, trachea midline. No JVD or lymphadenopathy. LYMPHATIC: No adenopathy. CARDIOVASCULAR: Regular rate and rhythm without murmurs. RESPIRATORY: Breath sounds equal bilaterally. No accessory muscle use. GASTROINTESTINAL: Abdomen soft, non-tender, nondistended. Spleen tip palpable. EXTREMITIES: No cyanosis, or edema. MUSCULOSKELETAL: Adequate muscle tone. NEUROLOGICAL: No obvious focal deficit. Awake, alert, and oriented x3. PSYCHIATRIC: Appropriate mood and affect; insight and judgment normal. Assessment/Plan (1) Splenomegaly Code(s): R16.1 - Splenomegaly, not elsewhere classified Status: Acute (2) Retroperitoneal lymphadenopathy Code(s): R59.0 - Localized enlarged lymph nodes Status: Acute - Plan 37-year-old woman with adenopathy and splenomegaly concerning for lymphoma. Lymph node biopsy performed. Recommendations pending final pathology. Case discussed with primary team. Okay for discharge from hematology oncology standpoint would biopsy review on an outpatient basis. Discussed with patient and her mother at bedside. Anticipate staging evaluation including CT PET scan as an outpatient and a bone marrow biopsy if indeed lymphoma is confirmed.
== END 2018-07-10 18:47 | disposition home or self-care (01) ==
LOC: PHEDDLT 18:41 → PH3 18:42
PROVIDERS: ADMIT Hospitalist; ATTEND Hospitalist